=== PATIENT | female | born 1985 | race Caucasian/White ===

== ENCOUNTER 2019-01-28 13:48 | Emergency (ER) | payer MEDICAID, OTHER ==
[~2019-01-28] VITALS: Ht 67 cm; Wt 89.2 kg
[2019-01-28] MEDS ORDERED: INSU100V16 SQ (14:07)
[2019-01-28] MEDS ORDERED: LEVO175T5 PO (14:07)
--- NOTE | 2019-01-28 14:09 | ED EENT ---
History of Present Illness General Chief Complaint: Dental Problems/Pain Stated Complaint: DENTAL PAIN Nursing Triage Note: Patient ambulatory to [facility] 1 with complaint of left lower dental pain and swelling to left jaw. Patient states she was seen at Urgent Care on 01/26/19 for this problem and given Penicillin VK 500 mg BID x 10 days. Patient states the swelling has gotten worse and pain has increased. Patient has not been able to get an appointment with dentist. Source: patient Exam Limitations: no limitations History of Present Illness Date Seen by Provider: Jan 28, 2019 Time Seen by Provider: 14:06 Initial Comments To ER with reports of left lower dental pain and swelling for the past few days. She saw an urgent care on 01/26/19 and given penicillin, denies much improvement. No history of this. She states she's only had one cavity, she does have a dentist but they were unable to get her in as of yet. She is a type I diabetic. Timing/Duration: abrupt Severity: moderate Location: facial, dental Prearrival Treatment: no prearrival treatment Associated Symptoms: No fever; tooth pain Allergies and Home Medications Allergies Coded Allergies: No Known Drug Allergies (Unverified , 01/28/19) Home Medications Clindamycin HCl 300 Mg Capsule, 300 MG PO TID Prescribed by: NAHUN CARDOSO on 01/28/19 1509 Hydrocodone Bit/Acetaminophen 1 Tab Tab, 1 EACH PO Q4-6HR PRN for PAIN-MODERATE Prescribed by: NAHUN CARDOSO on 01/28/19 1509 Insulin Aspart 100 Unit/1 Ml Susp, 15 UNIT SQ AC, (Reported) Levothyroxine Sodium 175 Mcg Tablet, 175 MCG PO DAILY, (Reported) Ondansetron 8 Mg Tab.rapdis, 8 MG PO Q6H PRN for NAUSEA/VOMITING Prescribed by: NAHUN CARDOSO on 01/28/19 1509 Patient Home Medication List Home Medication List Reviewed: Yes Review of Systems Review of Systems Constitutional: see HPI Ears: No Symptoms Reported Nose: no symptoms reported Mouth: no symptoms reported Throat: no symptoms reported Respiratory: no symptoms reported Cardiovascular: no symptoms reported Musculoskeletal: no symptoms reported Skin: no symptoms reported Neurological: No Symptoms Reported Hematologic/Lymphatic: No Symptoms Reported Past Qiivwrf-Tlmeeb-Kwcwaa Hx Patient Social History Alcohol Use: Denies Use Recreational Drug Use: No Smoking Status: Never a Smoker 2nd Hand Smoke Exposure: No Recent Foreign Travel: No Contact w/Someone Who Travel: No Recent Infectious Disease Expo: No Recent Hopitalizations: No Physical Abuse: No Sexual Abuse: No Mistreated: No Fear: No Immunizations Up To Date Tetanus Booster (TDap): Less than 5yrs PED Vaccines UTD: Yes Date of Influenza Vaccine: Dec 06, 2018 Seasonal Allergies Seasonal Allergies: No Past Medical History Surgeries: Yes Section, Tubal Ligation Respiratory: No Cardiac: No Neurological: No Last Menstrual Period: Jan 06, 2019 [employer] History: Tubal Ligation Genitourinary: No Gastrointestinal: No Musculoskeletal: No Endocrine: Yes Diabetes, Insulin dep, Hypothyroidsim Are Your Blood Sugars Over 250: No HEENT: No Cancer: No Psychosocial: No Integumentary: No Blood Disorders: No Physical Exam Vital Signs Vital Signs - First Documented 01/28/19 13:51 Temp 36.9 Pulse 105 Resp 16 B/P (MAP) 154/88 (110) Pulse Ox 100 O2 Delivery Room Air Height, Weight, BMI Height: '" Weight: lbs. oz. kg; 198.00 BMI Method: General Appearance: WD/WN, no apparent distress Eyes: bilateral eye normal inspection, bilateral eye PERRL, bilateral eye EOMI Ears: bilateral ear auricle normal, bilateral ear canal normal, bilateral ear TM normal Mouth/Throat: normal mouth inspection, mandibular swelling; No maxillary swelling, No tonsillar swelling, No trismus, No uvula swelling, No voice changes; other (no obvious dental caries, dentition is in overall good shape. There is some swelling to the buccal surface left anterior lateral mandible. No fluctuance to this.) Neck: non-tender; No lymphadenopathy (R), No lymphadenopathy (L) Respiratory: no respiratory distress, no accessory muscle use Neurologic/Psychiatric: alert, normal mood/affect, oriented x 3 Skin: normal color, warm/dry Progress/Results/Core Measures Results/Orders Lab Results Laboratory Tests Test 01/28/19 14:01 Range/Units White Blood Count 7.0 4.3-11.0 10^3/uL Red Blood Count 4.37 4.35-5.85 10^6/uL Hemoglobin 11.6 11.5-16.0 G/DL Hematocrit 36 35-52 % Mean Corpuscular Volume 82 80-99 FL Mean Corpuscular Hemoglobin 27 25-34 PG Mean Corpuscular Hemoglobin Concent 32 32-36 G/DL Red Cell Distribution Width 13.7 10.0-14.5 % Platelet Count 222 130-400 10^3/uL Mean Platelet Volume 9.8 7.4-10.4 FL Neutrophils (%) (Auto) 73 42-75 % Lymphocytes (%) (Auto) 19 12-44 % Monocytes (%) (Auto) 7 0-12 % Eosinophils (%) (Auto) 0 0-10 % Basophils (%) (Auto) 0 0-10 % Neutrophils # (Auto) 5.1 1.8-7.8 X 10^3 Lymphocytes # (Auto) 1.3 1.0-4.0 X 10^3 Monocytes # (Auto) 0.5 0.0-1.0 X 10^3 Eosinophils # (Auto) 0.0 0.0-0.3 10^3/uL Basophils # (Auto) 0.0 0.0-0.1 10^3/uL Sodium Level 137 135-145 MMOL/L Potassium Level 4.0 3.6-5.0 MMOL/L Chloride Level 104 98-107 MMOL/L Carbon Dioxide Level 22 21-32 MMOL/L Anion Gap 11 5-14 MMOL/L Blood Urea Nitrogen 5 L 7-18 MG/DL Creatinine 0.87 0.60-1.30 MG/DL Estimat Glomerular Filtration Rate > 60 BUN/Creatinine Ratio 6 Glucose Level 187 H 70-105 MG/DL Calcium Level 9.0 8.5-10.1 MG/DL C-Reactive Protein High Sensitivity 3.89 H 0.00-0.50 MG/DL My Orders Orders - NAHUN CARDOSO APRN Cbc With Automated Diff (01/28/19 14:04) Hs C Reactive Protein (01/28/19 14:04) Basic Metabolic Panel (01/28/19 14:04) Ed Iv/Invasive Line Start (01/28/19 14:04) Ns Iv 1000 Ml (Sodium Chloride 0.9%) (01/28/19 14:15) Clindamycin 900 Mg/50 Ml Ivpb (Cleocin P (01/28/19 14:15) Ketorolac Injection (Toradol Injection) (01/28/19 14:15) Ct Maxillofacial W (01/28/19 14:04) Iohexol Injection (Omnipaque 350 Mg/Ml 1 (01/28/19 15:15) Received Contrast (Hold Metformin- Contr (01/28/19 15:15) Sodium Chloride Flush (Catheter Flush Sy (01/28/19 15:15) Ns (Ivpb) (Sodium Chloride 0.9% Ivpb Bag (01/28/19 15:15) Medications Given in ED Current Medications Medications Dose Ordered Sig/Lv Route Start Time Stop Time Status Last Admin Dose Admin Clindamycin Phosphate/Dextrose 50 ml @ 100 mls/hr ONCE ONCE IV 01/28/19 14:15 01/28/19 14:44 DC 01/28/19 14:14 100 MLS/HR Iohexol 100 ml ONCE ONCE IV 01/28/19 15:15 01/28/19 15:16 DC 01/28/19 15:09 100 ML Ketorolac Tromethamine 15 mg ONCE ONCE IVP 01/28/19 14:15 01/28/19 14:16 DC 01/28/19 14:13 15 MG Sodium Chloride 100 ml ONCE ONCE IV 01/28/19 15:15 01/28/19 15:16 DC 01/28/19 15:10 80 ML Vital Signs/I&O 01/28/19 13:51 Temp 36.9 Pulse 105 Resp 16 B/P (MAP) 154/88 (110) Pulse Ox 100 O2 Delivery Room Air Blood Pressure Mean: 110 POS Diagnostic Imaging Diagonstic Imaging: CT Comments NAME: DAVID SCANLON [facility] REC#: [id number] PT STATUS: REG ER : 1985 PHYSICIAN: NAHUN CARDOSO APRN ADMIT DATE: 01/28/19/ER Draft POSDate of Exam:01/28/19 CT MAXILLOFACIAL W PROCEDURE: CT maxillofacial with contrast. TECHNIQUE: After intravenous administration of contrast, axial images were obtained through the face and reformatted into coronal and sagittal planes. Auto Exposure Controls were utilized during the CT exam to meet ALARA standards for radiation dose reduction. INDICATION: Left-sided facial pain and swelling starting yesterday. COMPARISON: None. DISCUSSION: There is mild induration of the subcutaneous fat along the mid anterior left mandible. No drainable fluid collection identified. This could be seen with blunt trauma or cellulitis. There is mild skin thickening. Shotty appearing reactive lymph nodes are present bilaterally. The bilateral parotid and submandibular glands are unremarkable. The tonsils appear within normal limits. The visualized intracranial contents and orbits appear within normal limits. There is no acute osseous abnormality identified. IMPRESSION: 1. Mild soft tissue induration along the left mandible, likely due to blunt trauma or superficial infection. No drainable fluid identified. Dictated on workstation # [id number] Dict: 01/28/19 1520 Trans: 01/28/19 1524 [facility] [id number] Interpreted by: PEGGY OSEGUERA MD Electronically signed by: Departure Communication (Admissions) 1530-Feeling much better she states. Impression Primary Impression: Odontogenic infection of jaw Disposition: HOME, SELF-CARE Condition: Stable Departure-Patient Inst. Decision time for Depature: 15:08 Referrals: MELISA GREER MD (PCP/Family) Primary Care Physician Patient Instructions: Tooth Abscess (DC) Add. Discharge Instructions: 1. Return to ER for any concerns 2. Follow-up with your doctor next week 3. All discharge instructions reviewed with patient and/or family. Voiced understanding. Scripts Ondansetron (Ondansetron Odt) 8 Mg Tab.rapdis 8 MG PO Q6H PRN for NAUSEA/VOMITING, #10 TAB Prov: NAUHN CARDOSO APRN 01/28/19 Hydrocodone Bit/Acetaminophen (Hydrocodone/Acetaminophen 5/325mg Tablet) 1 Tab Tab 1 EACH PO Q4-6HR PRN for PAIN-MODERATE MDD 10 for 3 Days, #10 TAB Prov: NAHUN CARDOSO APRN 01/28/19 Clindamycin HCl (Clindamycin HCl) 300 Mg Capsule 300 MG PO TID, #21 CAP Prov: NAHUN CARDOSO APRN 01/28/19 NAHUN CARDOSO APRN Jan 28, 2019 14:09 POS
[2019-01-28 14:13] LABS: BASOPHILS % (AUTO) 0 % (0-10); EOSINOPHILS % (AUTO) 0 % (0-10); HEMATOCRIT 36 % (35-52); HEMOGLOBIN 11.6 G/DL (11.5-16.0); LYMPHOCYTES # (AUTO) 1.3 X 10^3 (1.0-4.0); LYMPHOCYTES % (AUTO) 19 % (12-44); MEAN CORPUSCULAR HEMOGLOBIN 27 PG (25-34); MEAN CORPUSCULAR HGB CONC 32 G/DL (32-36); MEAN CORPUSCULAR VOLUME 82 FL (80-99); MEAN PLATELET VOLUME 9.8 FL (7.4-10.4); MONOCYTES # (AUTO) 0.5 X 10^3 (0.0-1.0); MONOCYTES % (AUTO) 7 % (0-12); NEUTROPHILS # (AUTO) 5.1 X 10^3 (1.8-7.8); NEUTROPHILS % (AUTO) 73 % (42-75); PLATELET COUNT 222 10^3/uL (130-400); RED CELL DISTRIBUTION WIDTH 13.7 % (10.0-14.5)
[2019-01-28] MEDS ORDERED: NS IV 1000 ML 1,000 ML IV SCH (14:15)
[2019-01-28] MEDS ORDERED: CLINDAMYCIN 900 MG/50 ML IVPB 50 ML IV ONE (14:15)
[2019-01-28] MEDS ORDERED: KETOROLAC 30 MG/ML VIAL IVP ONE (14:15)
[2019-01-28 14:32] LABS: BUN/CREATININE RATIO 6; CARBON DIOXIDE 22 MMOL/L (21-32); CHLORIDE 104 MMOL/L (98-107); CREATININE SERUM 0.87 MG/DL (0.60-1.30); GFR ESTIMATED > 60; GLUCOSE 187 MG/DL (70-105); SODIUM 137 MMOL/L (135-145)
--- NOTE | 2019-01-28 14:52 | NUR ---
Patient states the pain to the left lower jaw has improved after toradol given.
[2019-01-28] MEDS ORDERED: ONDA8TAB13 PO (15:09)
[2019-01-28] MEDS ORDERED: ACHD5005 PO (15:09)
[2019-01-28] MEDS ORDERED: CLIN300C11 PO (15:09)
[2019-01-28] MEDS ORDERED: IOHEXOL 350 MG/ML 100 ML (OMNIPAQUE 350) VIAL IV ONE (15:15)
[2019-01-28] MEDS ORDERED: CATHETER FLUSH 10 ML SYR IV PRN (15:15)
[2019-01-28] MEDS ORDERED: HOLD METFORMIN - RECEIVED CONTRAST 20 ML VIAL IV SCH (15:15)
[2019-01-28] MEDS ORDERED: NS 100 ML (IVPB) BAG IV ONE (15:15)
--- NOTE | 2019-01-28 15:25 | Diagnostic Imaging Report ---
PROCEDURE: CT maxillofacial with contrast. TECHNIQUE: After intravenous administration of contrast, axial images were obtained through the face and reformatted into coronal and sagittal planes. Auto Exposure Controls were utilized during the CT exam to meet ALARA standards for radiation dose reduction. INDICATION: Left-sided facial pain and swelling starting yesterday. COMPARISON: None. DISCUSSION: There is mild induration of the subcutaneous fat along the mid anterior left mandible. No drainable fluid collection identified. This could be seen with blunt trauma or cellulitis. There is mild skin thickening. Shotty appearing reactive lymph nodes are present bilaterally. The bilateral parotid and submandibular glands are unremarkable. The tonsils appear within normal limits. The visualized intracranial contents and orbits appear within normal limits. There is no acute osseous abnormality identified. IMPRESSION: 1. Mild soft tissue induration along the left mandible, likely due to blunt trauma or superficial infection. No drainable fluid identified. Dictated by: Dictated on workstation # [id number]
[2019-01-28 15:33] VITALS: BP 124/92
== END 2019-01-28 15:33 | disposition home or self-care (01) ==
LOC: ER 13:50
DX: M27.2 Inflammatory conditions of jaws (principal); E11.9 Type 2 diabetes mellitus without complications; E03.9 Hypothyroidism, unspecified; Z79.4 Long term (current) use of insulin; Z98.51 Tubal ligation status
CPT/HCPCS: 36415; 70487; 80048; 85025; 86141